=== PATIENT | female | born 1980 | race African-American/Black ===

== ENCOUNTER 2017-12-14 10:17 | Outpatient (CLI) | payer BC ==
[2017-12-14 11:31] LABS: Hemoglobin 12.3 g/dL (12.0-16.0); Mean Corpuscular HGB CONC 32.1 g/dL (32.0-36.0); Mean Corpuscular Volume 80.9 fL (78.0-98.0); Mean Platelet Volume 8.3 fL (7.4-10.4); Platelet Count 302 thou/uL (130-400); RBC Distribution Width 13.4 % (11.5-14.5); Red Blood Cell (RBC) Count 4.73 mill/uL (4.20-5.40); White Blood Cell (WBC) Count 7.2 thou/uL (4.8-10.8)
[2017-12-14 11:45] LABS: Anion Gap 12 mmol/L (10-20); BHCG - Serum Negative (NEGATIVE); BUN (Urea Nitrogen) 5 mg/dL (7.0-18.7); Calc. Creatinine Clearance 0 mL/min (70-130); Calcium 9.6 mg/dL (7.8-10.44); Carbon Dioxide 24 mmol/L (22-29); Chloride 105 mmol/L (98-107); Estimated GFR-MDRD Greater than 90; Glucose 79 mg/dL (70-105); Potassium 3.8 mmol/L (3.5-5.1); Pregs Control Background? CLEAR/WHITE (CLR/WHITE); Pregs Control Bar Appear? YES (CONTROL BAR); Sodium 137 mmol/L (136-145)
--- NOTE | 2017-12-14 16:27 | EKG ---
Test Reason : Blood Pressure : / mmHG Vent. Rate : 078 BPM Atrial Rate : 078 BPM P-R Int : 146 ms QRS Dur : 068 ms QT Int : 366 ms P-R-T Axes : 001 076 048 degrees QTc Int : 417 ms Normal sinus rhythm Normal ECG No previous ECGs available Confirmed by GAMAL WASSERMAN ([id number]) on 12/14/2017 4:27:32 PM Referred By: JAVON Confirmed By:GAMAL WASSERMAN
== END 2017-12-14 10:18 | disposition home or self-care (01) ==
LOC: LABBT 10:17
PROVIDERS: ATTEND Neurological Surgery
DX: Z01.818 Encounter for other preprocedural examination (principal); M54.16 Radiculopathy, lumbar region
CPT/HCPCS: 80048; 84703; 85027; 93005; 93010

== ENCOUNTER 2018-11-19 07:03 | Day surgery (SDC) | payer BC ==
[2018-11-16 09:20] VITALS: BMI 33.9
[2018-11-19] MEDS ORDERED: Sodium Chloride 0.9% 10 ML ONE (08:39)
[2018-11-19] MEDS ORDERED: Midazolam HCl 2 mg/2 ml Vial ONE (08:48)
[2018-11-19] MEDS ORDERED: Fentanyl 100 MCG/2 ML VIAL ONE ×3 (08:57→11:08)
[2018-11-19 09:01] LABS: #Basophils 0.1 thou/uL (0.0-0.2); #Eosinphils 0.1 thou/uL (0.0-0.7); #Lymphocytes 2.7 thou/uL (1.20-3.40); #Monocytes 0.3 thou/uL (0.11-0.59); #Neutrophils 3.3 thou/uL (1.40-6.50); %Basophils 1.1 % (0.0-1.0); %Lymphocytes 41.8 % (21.0-51.0); %Monocytes 4.9 % (0.0-10.0); %Neutrophils 51.2 % (42.0-75.0); Hemoglobin 11.6 g/dL (12.0-16.0); Mean Corpuscular HGB CONC 32.3 g/dL (32.0-36.0); Mean Corpuscular Hemoglobin 26.3 pg (27.0-31.0); Mean Corpuscular Volume 81.3 fL (78.0-98.0); Mean Platelet Volume 8.4 fL (7.4-10.4); Platelet Count 302 thou/uL (130-400); RBC Distribution Width 12.7 % (11.5-14.5); Red Blood Cell (RBC) Count 4.43 mill/uL (4.20-5.40); White Blood Cell (WBC) Count 6.4 thou/uL (4.8-10.8)
[2018-11-19] MEDS ORDERED: Promethazine HCl 25 MG/ML VIAL IM PRN (09:45)
[2018-11-19] MEDS ORDERED: Meperidine HCl/PF 25 MG/ML VIAL SLOW IVP PRN (09:45)
[2018-11-19] MEDS ORDERED: Morphine Sulfate 2 MG/ML SYRINGE SLOW IVP PRN (09:45)
[2018-11-19] MEDS ORDERED: HYDROmorphone 2 MG/ML VIAL SLOW IVP PRN (09:45)
[2018-11-19] MEDS ORDERED: PACU-Morphine 4MG/ML VIAL SLOW IVP PRN (09:45)
[2018-11-19] MEDS ORDERED: Promethazine HCl 25 MG/ML VIAL SLOW IVP PRN (09:45)
[2018-11-19] MEDS ORDERED: Ondansetron HCl/PF 4 MG/2 ML Vial IVP PRN (09:45)
[2018-11-19] MEDS ORDERED: Morphine 2 MG/ML SYRINGE ONE (11:46)
[2018-11-19] MEDS ORDERED: HYDROcodone/Acetaminophen 5/325 mg Tablet ONE ×2 (11:47→13:30)
[2018-11-19] MEDS ORDERED: Lidocaine 1% PF 5 ML VIAL ONE (12:04)
[2018-11-19] MEDS ORDERED: Rocuronium Bromide 10 MG/ML (10ML VIAL) ONE (12:04)
[2018-11-19] MEDS ORDERED: PROPOFOL 200 MG/20 ML VIAL ONE (12:04)
[2018-11-19] MEDS ORDERED: Ondansetron PF 4 MG/2 ML Vial ONE (12:04)
[2018-11-19] MEDS ORDERED: Dexamethasone 20 MG/5 ML VIAL ONE (12:04)
[2018-11-19] MEDS ORDERED: Glycopyrrolate 0.2 MG/ML 5 ML SYRINGE ONE (12:04)
[2018-11-19 12:39] LABS: Chloride 109 mmol/L (98-107); Potassium 4.3 mmol/L (3.5-5.1); Sodium 140 mmol/L (136-145)
[2018-11-19 12:40] LABS: Calcium 9.4 mg/dL (7.8-10.44); Glucose 92 mg/dL (70-105)
[2018-11-19 12:42] LABS: Anion Gap 15 mmol/L (10-20); Carbon Dioxide 20 mmol/L (22-29)
[2018-11-19 12:44] LABS: Calc. Creatinine Clearance 123 mL/min (70-130); Estimated GFR-MDRD 81
[2018-11-19 12:45] LABS: BUN (Urea Nitrogen) 9 mg/dL (7.0-18.7)
--- NOTE | 2018-11-19 13:22 | OP ---
DATE OF PROCEDURE: 11/19/2018 PLATE PUT IN WORKER: Jonelle Maya PA-C PROCEDURES PERFORMED: L5-S1 laminectomy, facetectomy, foraminotomy, interbody arthrodesis, intervertebral biomechanical device, local morselized autograft, demineralized bone matrix, posterolateral arthrodesis, pedicle screw instrumentation, L5-S1. DESCRIPTION OF PROCEDURE: The patient was brought to the operating room and intubated. She was rolled in the prone position on gel-filled chest rolls. An incision was made exposing L5 and S1 and the level was confirmed by x-ray. We performed a right L5-S1 laminectomy, facetectomy, foraminotomy, and complete diskectomy at L5-S1. After completely removing the intervertebral disk and decompressing the neural elements, the bony endplates at L5-S1 were decorticated for the purpose arthrodesis and appropriate-sized intervertebral biomechanical PEEK device was brought into the field, filled with demineralized bone matrix, local morselized autograft, and tapped in place securely at L5-S1. Next, pedicle screws were placed at right L5 and right S1 using lateral fluoroscopic guidance and the positioning was confirmed by x-ray. The amanda was secured between the screws, connected by nuts, which were final tightened. The wound was then extensively irrigated and MAC hemostasis was secured. A combination of demineralized bone matrix, local morselized autograft was laid over the left lamina on posterolateral surfaces for the purpose of arthrodesis. Vancomycin powder was applied and the wound was then closed in anatomic layers. Job ID: [id number]
== END 2018-11-19 13:00 | disposition home or self-care (01) ==
LOC: SDC 07:03
PROVIDERS: ATTEND Neurological Surgery
PROC: 0SB40ZZ Excision of Lumbosacral Disc, Open Approach (ICD-10-PCS; principal; 2018-11-19)
PROC: 0SG3071 Fusion of Lumbosacral Joint with Autologous Tissue Substitute, Posterior Approach, Posterior Column, Open Approach (ICD-10-PCS; principal; 2018-11-19)
PROC: 0SG30AJ Fusion of Lumbosacral Joint with Interbody Fusion Device, Posterior Approach, Anterior Column, Open Approach (ICD-10-PCS; principal; 2018-11-19)
DX: M51.16 Intervertebral disc disorders with radiculopathy, lumbar region (principal); Z79.899 Other long term (current) drug therapy
CPT/HCPCS: 76000; 80048; 85025; C1713; C1768; J0690; J1100; J2001; J2250; J2270; J2405; J2704; J3010; J3370; J3490

== ENCOUNTER 2018-11-30 13:50 | Emergency (ER) | payer BC ==
[2018-11-30 15:19] LABS: #Eosinphils 0.1 thou/uL (0.0-0.7); #Lymphocytes 2.5 thou/uL (1.20-3.40); #Monocytes 0.5 thou/uL (0.11-0.59); #Neutrophils 4.7 thou/uL (1.40-6.50); %Basophils 0.6 % (0.0-1.0); %Eosinophils 0.8 % (0.0-10.0); %Lymphocytes 32.3 % (21.0-51.0); %Monocytes 6.4 % (0.0-10.0); %Neutrophils 59.8 % (42.0-75.0); Hemoglobin 11.6 g/dL (12.0-16.0); Mean Corpuscular HGB CONC 32.6 g/dL (32.0-36.0); Mean Corpuscular Volume 79.8 fL (78.0-98.0); Mean Platelet Volume 8.1 fL (7.4-10.4); Platelet Count 349 thou/uL (130-400); RBC Distribution Width 12.5 % (11.5-14.5); Red Blood Cell (RBC) Count 4.48 mill/uL (4.20-5.40); White Blood Cell (WBC) Count 7.8 thou/uL (4.8-10.8)
[2018-11-30 15:23] LABS: Bilirubin Negative (Negative); Blood, Urine Negative (Negative); Clarity TURBID (Clear); Glucose, Urine (Dipstick) Negative (Negative); Leukocyte Negative (Negative); Nitrite Negative (Negative); Protein, Urine (Dipstick) Negative (Neg-Trace)
[2018-11-30] MEDS ORDERED: HYDROcodone/Acetaminophen 10/325 mg Tablet ONE (15:35)
[2018-11-30 15:39] LABS: ALT (SGPT) 43 U/L (8-55); AST (SGOT) 26 U/L (5-34); Albumin 3.8 g/dL (3.5-5.0); Alkaline Phosphatase 78 U/L (40-150); Anion Gap 12 mmol/L (10-20); BUN (Urea Nitrogen) 7 mg/dL (7.0-18.7); Bilirubin, Total 0.3 mg/dL (0.2-1.2); Calc. Creatinine Clearance 0 mL/min (70-130); Calcium 9.6 mg/dL (7.8-10.44); Carbon Dioxide 25 mmol/L (22-29); Chloride 105 mmol/L (98-107); Estimated GFR-MDRD 88; Globulin 4.6 g/dL (2.4-3.5); Glucose 81 mg/dL (70-105); Potassium 3.9 mmol/L (3.5-5.1); Protein, Total 8.4 g/dL (6.0-8.3); Sodium 138 mmol/L (136-145)
--- NOTE | 2018-11-30 17:52 | MRI ---
MRI THORACIC SPINE WITH AND WITHOUT CONTRAST: 11/30/18 HISTORY: Urinary incontinence. COMPARISON: None. FINDINGS: Appropriate Tf1 marrow signal intensity of the thoracic vertebrae. Thoracic spine vertebral body heig ht is maintained. There is no fracture. There is an intrinsic T1 hyperintense lesion with associate d T2 and STIR hyperintensity at T7, most compatible with an osseous hemangioma along the posterior m idline aspects. Based on the sagittal images this lesion measures 1.1 cm in the craniocaudal dimens ion. Postcontrast images do not demonstrate any abnormal enhancement with regards to the thoracic espinoza tebrae. The visualized mediastinum, lung parenchyma and solid organs have appropriate signal intensity. Appropriate signal intensity of the paraspinal muscles. The thoracic cord has a normal size and signal intensity. No cord malacia. No cord expansion. There is no evidence of abnormal enhancement. Conus medullaris terminates beyond the T12 level. Throughout the thoracic spine, there is no significant central canal stenosis or neural foraminal kristina rowing. IMPRESSION: 1. Unremarkable pre and postcontrast thoracic spine MRI. No significant central canal stenosis w ith significant foraminal narrowing. 2. No abnormal signal intensity in the thoracic cord. POS: [facility]
--- NOTE | 2018-11-30 18:13 | MRI ---
MRI OF THE LUMBAR SPINE WITH AND WITHOUT CONTRAST: 11/30/18 HISTORY: Urinary incontinence. Previous lumbar fusion. Evaluate for hematoma versus epidural abscess. FINDINGS: There are unilateral right sided transpedicular screws at L5 and S1. There is associated metallic becki ceptibility artifact. There is no spondylolisthesis or spondylolysis. Appropriate T1 marrow signal in tensity of the lumbar vertebrae. No fracture. No significant STIR hyperintensity to suggest vertebral body edema or ligamentous injury. No pathologic enhancement of the vertebral bodies. There is approp riate signal intensity in the visualized paraspinal muscles. No retroperitoneal mass, lymphadenopathy , or hematoma. There is appropriate signal intensity in the visualized solid organs. Conus medullaris terminates at the superior end plate of L1. There is T2 hyperintensity, with associated T1 hypointensity involving the posterior midline subcutan eous fat starting at the L3-L4 disc space extending inferiorly to the S2 level. Additionally, there i s similar signal intensity left of the spinous process at the L4 and L5 levels. Postcontrast images d emonstrate incomplete peripheral enhancement in both fluid collections. There may be a small focus of continuity between both collections. The collection in the subcutaneous fat measures 2.6 cm mediola teral x 2.1 cm anterior posterior x 8.6 cm craniocaudal. The collection adjacent to the left aspect o f the spinous process measures 5.6 cm anterior posterior x 1.7 cm anterior posterior x 1.4 cm mediola teral. T12-L1: No significant central canal stenosis or neural foraminal narrowing. L1-L2: Adequate disc hydration. No significant central canal stenosis or foraminal narrowing. L2-L3: Adequate disc hydration. No significant central canal stenosis or foraminal narrowing. L3-L4: Adequate disc hydration. No significant central canal stenosis. Mild ligamentum flavum thicken ing and facet hypertrophy. Bilaterally, neural foramina are patent. L4-L5: There is adequate disc hydration. No significant central canal stenosis. Bilaterally, neural f oramina are patent. L5-S1: There is a right laminectomy and facetectomy change. There is a disc prosthesis that is jude g the right aspect of the L5-S1 disc space. There is no significant central canal stenosis. There is enhancing scar tissue in the right subarticular zone which partially effaces the traversing right S1 nerve root. The right neural foramen is moderately narrowed secondary to enhancing scar tissue. Scar tissue appears to extend and encompass the right L5 nerve root. There is moderate right foraminal trena nosis. Left foramen is patent. Axial images from S1 to S2 do not demonstrate any significant central canal stenosis or foraminal kristina rowing. IMPRESSION: 1. Unilateral right sided transpedicular screw at L5 and S1 with associated metallic susceptibil ity artifact. There is a disc prosthesis of the L5-S1 level which is predominantly along the right as pect of the disc. There is evidence of postoperative scar tissue in the right subarticular zone at L5 -S1 with some mass effect upon the traversing right S1 nerve root. Moderate right foraminal narrowing at L5-S1 due to scar. 2. Fluid collection in the midline subcutaneous fat and in the posterior left paraspinal muscles adjacent to the spinous process at L4 and L5. Fluid collection may represent postoperative change. I nfected fluid collection cannot be completely excluded. Correlate clinically. POS: [facility]
--- NOTE | 2018-12-01 00:25 | CON ---
DATE OF CONSULTATION: HISTORY OF PRESENT ILLNESS: Ms. Ross is a 38-year-old female who came to the emergency department this evening due to urinary incontinence following lumbar back surgery on 11/19/2018. Ms. Ross is a patient of Dr. Alejandra. He did a diskectomy and unilateral fusion L5-S1 on 11/19/2018. She was having back pain and bilateral lower extremity pain at the time, surgery went well. She said she went home the same day. However, starting following surgery, she was having some urinary incontinence. She states that she could feel her bladder. However, when she was sleeping, she would wake up having urinated on herself. This happened pretty frequently over the last week and a half. She spoke with our office today and was told to come to the emergency department. The ED got an MRI of the lumbar spine. There is no compression on any of the nerves seen on the MRI. She does have some postsurgical changes and good decompression. Upon examination, the patient is awake, alert, and oriented. She states she has back pain and she states that she feels weak in both legs, worse on the right than the left. However, upon physical exam, I find equal and normal strength bilaterally in both lower extremities. There is no change in sensation in either leg. No saddle anesthesia and she has a strong, good rectal tone. Reflexes are symmetric. There is no clonus. REVIEW OF SYSTEMS: Review of systems has been completed and is negative other than stated in the above HPI. ALLERGIES: NO KNOWN DRUG ALLERGIES. MEDICATIONS: 1. Lyrica. 2. Tizanidine. 3. [place]. PAST MEDICAL HISTORY: No past medical history. PAST SURGICAL HISTORY: L5-S1 diskectomy and unilateral fusion, 11/19/2018, right hand tendon repair. SOCIAL HISTORY: The patient denies alcohol, drug use, or smoking history. PHYSICAL EXAMINATION: VITAL SIGNS: Blood pressure 126/91, heart rate 94, respirations 18, temperature 99.1, pain 10, O2 saturations 98% on room air. CONSTITUTIONAL: The patient is alert and oriented. She is overweight. She is resting comfortably in her hospital bed though nontoxic. Does not appear to be distressed. HEENT: Head is normocephalic and atraumatic. Pupils are equal, round, and reactive to light. Extraocular movements are intact. Hearing is intact. Moist mucous membranes. RESPIRATIONS: Normal work of breathing on room air. BACK: There is a midline lumbar incision with Steri-Strips. There is no erythema, edema, or drainage noted. Steri-Strips cover the incision. A small amount of dried blood appears under them. Point tender along incision and bilaterally as expected. EXTREMITIES: The patient is moving all 4 extremities well. She has 5/5 strength bilaterally in deltoids, biceps, triceps, crap shooter strength, 5/5 strength bilaterally in hip flexion, knee flexion, knee extension, dorsiflexion, plantar flexion, EHL, and toe flexors. There is no change in sensation bilaterally. NEURO: The patient is alert and oriented x3. Cranial nerves 2 through 12 are intact. Memory, attention, fund of knowledge are normal. Speech is spontaneous and fluent. There is no focal motor or sensory deficits. IMAGING: MRI of the lumbar spine has been completed with and without contrast. Impression, unilateral right-sided transpedicular screw at L5-S1 with associated metallic susceptibility artifact. Disk prosthesis at L5-S1 level probably along the right aspect of the disk. There is evidence of postoperative scar tissue in the right subarticular zone at L5-S1 with some mass effect upon traversing the S1 right nerve root. Moderate right foraminal narrowing at L5-S1 due to scar. Fluid collection in the midline subcutaneous fat and in the posterior left paraspinal muscles adjacent to the spinous process at L4 and L5. Fluid collection may represent postoperative changes. Infection cannot be completely ruled out. MRI of thoracic spine with and without contrast, impression; unremarkable pre and postcontrast thoracic spine MRI. No significant central canal stenosis with significant foraminal narrowing. No abnormal signal intensity in thoracic cord. LABORATORY DATA: UA, relatively normal. ASSESSMENT AND PLAN: Ms. Ross is a 38-year-old female, who is 11 days postop from an L5-S1 unilateral fusion and diskectomy. She has been having the urinary incontinence, primarily when she is sleeping. She has sensation to know her bladder is full and she can go when she eats too when she is awake. The patient has not had a bowel movement since surgery, has been taking pain medication and muscle relaxers pre and post surgery. Neurosurgery has been consulted on the patient. She had MRI of the lumbar spine which shows some postoperative changes, but there is nothing compressing. There is no surgical intervention necessary for the patient. She has no saddle anesthesia. She has equal strength bilaterally in both lower extremities. No change in sensation bilaterally. She has normal rectal tone. Our recommendations are that she should be more active. Pain control with less medication would be ideal. This is most likely medication related and she definitely needs to have a bowel movement. Any further questions will be directed to the neurosurgery team. We will update Dr. Alejandra the patient status. She does have followup already scheduled for 12/11/2018. Job ID: [id number]
== END 2018-11-30 21:31 | disposition home or self-care (01) ==
LOC: ERS 13:50
DX: R32 Unspecified urinary incontinence (principal); K59.00 Constipation, unspecified
CPT/HCPCS: 36415; 72157; 72158; 80053; 81003; 85025; 87086

== ENCOUNTER 2018-12-11 15:22 | Outpatient (CLI) | payer BC ==
--- NOTE | 2018-12-11 16:00 | RAD ---
EXAM: LUMBAR SPINE TWO VIEWS: 12/11/18 History. Low back pain following recent surgery. Right pedicle screw placement at L5-S1 with intradiscal prosthesis. No significant malalignment. No a cute fracture. IMPRESSION: Postop changes L5-S1. No malalignment or other acute process. POS: [facility]
== END 2018-12-11 15:23 | disposition home or self-care (01) ==
LOC: TBSIIMAG 15:22
PROVIDERS: ATTEND Neurological Surgery
DX: M54.16 Radiculopathy, lumbar region (principal); Z98.890 Other specified postprocedural states
CPT/HCPCS: 72100

== ENCOUNTER 2020-09-30 10:13 | Outpatient (CLI) | payer BC ==
[2020-09-30 12:07] LABS: Anion Gap 12 mmol/L (10-20); BUN (Urea Nitrogen) 5 mg/dL (7.0-18.7); Calc. Creatinine Clearance 0 mL/min (70-130); Calcium 9.4 mg/dL (7.8-10.44); Carbon Dioxide 25 mmol/L (22-29); Chloride 107 mmol/L (98-107); Glucose 83 mg/dL (70-105); Potassium 4.4 mmol/L (3.5-5.1); Sodium 140 mmol/L (136-145)
[2020-09-30 12:50] LABS: Hemoglobin 11.2 g/dL (12.0-15.5); Mean Corpuscular HGB CONC 32.6 g/dL (32.0-36.0); Mean Corpuscular Hemoglobin 25.1 pg (27.0-33.0); Mean Corpuscular Volume 77.1 fl (81.6-98.3); Mean Platelet Volume 10.9 fl (7.4-10.4); Platelet Count 349 10x3/uL (150-450); RBC Distribution Width 14.7 % (11.5-14.5); Red Blood Cell (RBC) Count 4.46 10x6/uL (3.90-5.03); White Blood Cell (WBC) Count 5.1 10x3/uL (3.5-10.5)
[2020-09-30 18:20] LABS: SARS-CoV-2 PCR by NAA Not Detected (NotDetected)
== END 2020-09-30 10:14 | disposition home or self-care (01) ==
LOC: LABBT 10:13
PROVIDERS: ATTEND Neurological Surgery
DX: Z01.818 Encounter for other preprocedural examination (principal); M43.16 Spondylolisthesis, lumbar region; Z20.822 Contact with and (suspected) exposure to COVID-19
CPT/HCPCS: 80048; 85027; 87635; 93005; 93010; U0003; U0005

== ENCOUNTER 2020-10-05 05:55 | Observation (INO) | payer BC ==
[2020-10-05] MEDS ORDERED: Fentanyl 250 MCG/5 ML VIAL ONE (06:23)
[2020-10-05] MEDS ORDERED: Midazolam HCl 2 mg/2 ml Vial ONE (07:03)
[2020-10-05] MEDS ORDERED: Rocuronium Bromide 10 MG/ML (10ML VIAL) ONE (07:23)
[2020-10-05] MEDS ORDERED: Ondansetron PF 4 MG/2 ML Vial ONE (07:23)
[2020-10-05] MEDS ORDERED: Dexamethasone 20 MG/5 ML VIAL ONE (07:23)
[2020-10-05] MEDS ORDERED: Lidocaine 1% PF 5 ML VIAL ONE (07:23)
[2020-10-05] MEDS ORDERED: Glycopyrrolate 0.2 MG/ML 5 ML SYRINGE ONE (07:23)
[2020-10-05] MEDS ORDERED: PROPOFOL 200 MG/20 ML VIAL ONE (07:23)
[2020-10-05] MEDS ORDERED: Ondansetron HCl/PF 4 MG/2 ML Vial IVP PRN (07:52)
[2020-10-05] MEDS ORDERED: Promethazine HCl 25 MG/ML VIAL IM PRN ×2 (07:52→10:45)
[2020-10-05] MEDS ORDERED: Promethazine HCl 25 MG/ML VIAL SLOW IVP PRN (07:52)
[2020-10-05] MEDS ORDERED: Fentanyl 100 MCG/2 ML VIAL ONE (09:07)
[2020-10-05] MEDS ORDERED: Ondansetron PF 4 MG/2 ML Vial IM PRN (10:45)
[2020-10-05] MEDS ORDERED: Milk Of Magnesia 30 ML UDCUP PO PRN (10:45)
[2020-10-05] MEDS ORDERED: traMADol HCl 50 MG TAB PO PRN ×2 (10:45)
[2020-10-05] MEDS ORDERED: diphenhydrAMINE 25 MG CAP PO PRN (10:45)
[2020-10-05] MEDS ORDERED: Mag-Al 1200 mg/1200 mg/30 ML UDCUP PO PRN (10:45)
[2020-10-05] MEDS ORDERED: HYDROcodone/Acetaminophen 10/325 mg Tablet PO PRN (10:45)
[2020-10-05] MEDS ORDERED: Promethazine 25 MG TAB PO PRN (10:45)
[2020-10-05] MEDS ORDERED: diphenhydrAMINE 50 MG/ML VIAL IVP PRN (10:45)
[2020-10-05] MEDS ORDERED: Morphine 4 MG/ML VIAL SLOW IVP PRN ×2 (10:45→10:47)
[2020-10-05 10:50] VITALS: BMI 34.5
[2020-10-05] MEDS: Sodium Chloride 0.9% 1,000 ML IV SCH (11:04)
[2020-10-05] MEDS: tiZANidine HCl 4 MG TAB PO PRN ×2 (12:05→21:19)
[2020-10-05] MEDS: HYDROcodone/Acetaminophen 10/325 mg Tablet PO PRN ×3 (12:05→21:14)
[2020-10-05] MEDS: Pregabalin 50 MG CAP PO SCH ×2 (14:52→21:12)
[2020-10-05] MEDS: CEFAZOLIN 2 GM in Premix Bag 1 BAG IVPB SCH ×2 (14:53→21:14)
[2020-10-06] MEDS: HYDROcodone/Acetaminophen 10/325 mg Tablet PO PRN ×2 (02:00→07:48)
[2020-10-06] MEDS: Sodium Chloride 0.9% 1,000 ML IV SCH (02:10)
[2020-10-06] MEDS: tiZANidine HCl 4 MG TAB PO PRN (07:49)
[2020-10-06] MEDS: Pregabalin 50 MG CAP PO SCH (07:49)
[2020-10-06 07:56] VITALS: BP 118/76; TEMP 98
== END 2020-10-06 10:27 | disposition home or self-care (01) ==
LOC: SDC 05:55 → SJJU 08:51
PROVIDERS: ADMIT Neurological Surgery; ATTEND Neurological Surgery
PROC: 0SG30K1 Fusion of Lumbosacral Joint with Nonautologous Tissue Substitute, Posterior Approach, Posterior Column, Open Approach (ICD-10-PCS; principal; 2020-10-05)
DX: T84.226A Displacement of internal fixation device of vertebrae, initial encounter (principal); M54.16 Radiculopathy, lumbar region; Z79.1 Long term (current) use of non-steroidal anti-inflammatories (NSAID); Z79.899 Other long term (current) drug therapy
CPT/HCPCS: 76000; 96365; 96375; C1713; G0378; J0690; J1100; J2250; J2270; J2405; J2704; J3010; J3370; J3490

== ENCOUNTER 2020-10-22 10:42 | Outpatient (CLI) | payer BC | END 2020-10-22 10:43 | disposition home or self-care (01) | LOC: TBSIIMAG 10:42 | PROVIDERS: ATTEND Neurological Surgery | DX: M43.16 Spondylolisthesis, lumbar region (principal); Z98.1 Arthrodesis status | CPT/HCPCS: 72100 ==